=== PATIENT | male | born 1970 | race Caucasian/White ===

== ENCOUNTER 2024-04-21 08:53 | Emergency (ER) | payer OTHER, SELFPAY ==
[2024-04-21 08:53] VITALS: BP 138/81; PULSE 90; RESP 14; TEMP 36.1; O2SAT 99; BMI 36.5
--- NOTE | 2024-04-21 09:26 | ED.VIS.BACK ---
HPI History of Present Illness Chief Complaint: Back Informant: patient Onset/Context/Timing Onset: Today and Yesterday Context: Gradual Onset Timing: Continuous Quality: Sharp Location: Lumbar Current Severity: Moderate Maximum Severity: Moderate Worsened by: improves with Movement Relieved by: Remaining Still Associated Symptoms Associated Symptoms: Negative for Numbness, Tingling, Radiation to Right Leg, Radiation to Left Leg, Fever, Abdominal Pain, Dysuria, Unable to Ambulate, Unable to Transfer, Urinary Retention, Urinary Incontinence, Constipation or Fecal Incontinence Narrative Narrative: 53-year-old male history of prior back surgeries including anterior lift of L5-S1 and a fracture of the lumbar spine. He has had chronic back pain for years. He sees Dr. Jay with pain management. Recently just finished a prednisone taper yesterday. States he is having increased muscle spasms today and pain. Denies any fall or trauma. No fever. No bowel or bladder retention or incontinence. No leg weakness. He is on tizanidine for muscle relaxant. Prior similar symptoms: Yes Recent Illness/Hospitalization: No PFSH PFSH Home Medications ?Medication ?Instructions ?Recorded ?Last Taken ?Type tizanidine 4 mg tablet 4 mg PO BID PRN PRN pain 04/21/24 Unknown History Allergy/AdvReac Type Severity Reaction Status Date / Time gabapentin AdvReac MOOD Verified 04/21/24 08:56 ibuprofen (From Motrin) AdvReac Abd Verified 04/21/24 08:56 cramps/diarrhea simvastatin AdvReac Other Verified 04/21/24 08:56 Family History no significant family his Social History Smoking Status: Former smoker ROS ROS ED ROS Narrative Denies recent illness. Constitutional Constitutional ED: Denies chills or fever(s) Eyes Eyes: Denies blurry vision ENT ENT ED: Denies ear pain Cardiovascular Cardiovascular: Denies chest pain Respiratory/Chest Respiratory/Chest: Denies dyspnea Gastrointestinal Gastrointestinal: Denies abdominal pain Genitourinary Genitourinary ED: Denies dysuria or hematuria Musculoskeletal Musculoskeletal: Denies arthralgias Integumentary Denies abscess Neurologic Neurologic: Denies headache(s) Psychiatric Psychiatric: Denies anxiety or depression Endocrine Endocrinology: Denies cold intolerance Hematologic/Lymphatic Hematologic/Lymphatic: Denies easy bleeding, easy bruising or lymphadenopathy Allergic/Immunologic Allergic/Immunologic ED: Denies mouth swelling, tongue swelling or urticaria EXAM Physical Exam Narrative Exam Narrative: 53-year-old male vital signs are stable afebrile. No acute distress. H EENT exam pupils round react light. Mytrex membranes. Neck nontender. Lungs clear to auscultation. Heart regular rhythm rate about 90 no murmur. Abdomen soft, nontender, nondistended normal bowel sounds without peritoneal signs. Moving all 4 extremities. Neurovascularly intact. Normal acute care nurse practitioner strength. Normal motor strength of both lower extremities. Normal sensation. No cauda equina. Able to lift either leg off the bed. No radiculopathy. Back reproducible tenderness along the lumbar spine consistent with myofascial spasm. Well-healed prior surgical incision of the lumbar spine. Neurologically is awake and alert. No focal motor or sensory deficits. Const Vital Signs: 04/21/24 08:53 Temperature 96.9 F L Temperature Source Temporal Pulse Rate 90 Respiratory Rate 14 Blood Pressure 138/81 H Blood Pressure Mean 100 Pulse Ox 99 Oxygen Delivery Method Room Air Positive well nourished and well developed; Negative for cachectic, contractures or unkempt General Appearance ED: well developed; Negative for unkempt, cachectic or contractures Nutritional Appearance: Negative for cachectic HEENT Reports moist mucous membranes Negative for trauma or tenderness Eyes PERRL and EOMs intact bilaterally Neck no lymphadenopathy, supple and no JVD Resp normal respiratory effort and clear to auscultation bilaterally Cardio regular rate, regular rhythm, S1 normal heart sound, S2 normal heart sound and no murmurs GI normal to inspection, nondistended, normoactive bowel sounds, soft to palpation, non-tender, non-distended and no masses Inspection: Negative for abdominal distention Palpation: Negative for tender, guarding or rebound tenderness present Back/Spine normal to inspection Back/Spine Narrative: Paralumbar soft tissue tenderness consistent with muscle spasm. Thoracic Spine / Upper Back: paraspinal muscle tenderness Extremity normal to inspection and no clubbing, cyanosis or edema General Extremety ED: Negative for edema or tenderness General Extremity: Negative for edema Neuro oriented x3 and no sensory deficits noted Sensorium / Orientation: Negative for alert, confused, lethargic or stuporous Motor Exam: strength 5/5 throughout Psych mental status grossly normal Appearance: Negative for unkempt Attitude: No agitated Mood & Affect: Negative for depressed, sad or tearful Skin no rashes or lesions noted and no wounds General Skin Exam: Negative for jaundice Lesions: No lesion noted Rashes: No rashes noted Trauma: Negative for abrasion Wounds: Negative for wounds noted MDM MDM MDM Narrative Medical decision making narrative: 53-year-old male with chronic back pain from prior injuries and surgeries. Sees pain management has appointment to see his pain management physician Dr. Jay on Wednesday. He will be given an IM injection of morphine. He is currently taking a muscle relaxant which she will continue. He does not need any imaging. He is had no recent trauma. He is neurovascularly intact. Patient is comfortable the plan. Discharge Plan Triage Chief Complaint: Back ED Provider: Justin Saavedra Dx/Rx/DC Orders Clinical Impression: Back pain Instructions: ED Back Pain (Acute or Chronic) Prescriptions: No Action tizanidine 4 mg tablet 4 mg PO BID PRN PRN (Reason: pain) Referrals: Junaid Jay, [Non-Staff] - [facility] appointment Activity Restrictions/Additional Instructions: Continue your muscle relaxant. Hot shower, warm bath, massage. Follow-up with your painting supervisor with your scheduled appointment on Wednesday. Print Language: Chadian Disposition Disposition: Home, Self Care
[2024-04-21] MEDS: morphine 10 MG/ML Syringe IM (09:29)
== END 2024-04-21 09:42 | disposition home or self-care (01) ==
LOC: ED 09:38
PROVIDERS: Emergency Provider Emergency Medicine; PCP Internal Medicine; Visit Provider Emergency Medicine
DX: R11.2 Nausea with vomiting, unspecified (principal); G89.29 Other chronic pain; Z87.891 Personal history of nicotine dependence
CPT/HCPCS: 96372; 99282

== ENCOUNTER 2024-04-21 18:41 | Emergency (ER) | payer OTHER, SELFPAY ==
[2024-04-21 18:42] VITALS: BP 146/75; PULSE 84; RESP 16; TEMP 35.8; O2SAT 100; BMI 35.8
--- NOTE | 2024-04-21 20:40 | EDS_ITS ---
HPI HPI - GI History of Present Illness Chief Complaint: Nausea/Vomiting Informant: patient Abdominal Pain/Flank Pain Onset: Today Context: Gradual Onset Timing: Intermittent Quality: - (Knot) Location: Epigastric Worsened by: Nothing Relieved by: Nothing Nausea/Vomiting/Emesis GI Symptom: Positive for Nausea and Vomiting Onset: Today Quality: Positive for Nonbilious; Negative for Blood streaks, Coffee ground or Hematemesis Episodes: 4 Diarrhea/Melena/Hematochezia GI Symptom: Negative for Diarrhea, Melena or Hematochezia Associated Symptoms Associated Symptoms: Negative for Dysuria, Frequency or Hematuria Narrative Narrative: Patient presents with abdominal pain, nausea, and vomiting that began today. Patient states he was seen here earlier today for his back. Patient states he received an injection of morphine. Patient states that when he got home he started having some nausea and vomiting. Patient states he had a knot in his upper abdomen. Patient states it has resolved. Patient states he had 4 episo nabor of vomiting. Patient states he was stomach contents. Patient denies any hematemesis or coffee-ground emesis. Patient admits to some photophobia and some dizziness. Patient denies any diarrhea, melena, or hematochezia. Patient denies any urinary complaints. PFSH PFS Medical History (Updated 04/21/24 @ 22:[address] Alfred Suarez, ) Back pain Chronic pain Medical History no medical history Home Medications ?Medication ?Instructions ?Recorded ?Last Taken ?Type ondansetron 4 mg disintegrating 4 mg PO Q8H PRN PRN Na usea #10 tabs 04/21/24 Unknown Rx tablet tizanidine 4 mg tablet 4 mg PO BID PRN PRN pain Unknown History Allergy/AdvReac Type Severity Reaction Status Date / Time gabapentin AdvReac MOOD Verified 04/21/24 18:45 ibuprofen (From Motrin) AdvReac Abd Verified 04/21/24 18:45 cramps/diarrhea simvastatin AdvReac Other Verified 04/21/24 18:45 Family History no significant family his Surgical History (Updated 04/21/24 @ 22:[address] Alfred Suarez, DO) Hx of knee surgery Hx of shoulder surgery History of back surgery Surgical History no surgical history Social History Smoking Status: Former smoker ROS ROS ED Constitutional Constitutional ED: Reports chills and subjective; Denies fever(s) Eyes Eyes: Denies blurry vision or change in vision ENT ENT ED: Reports rhinorrhea; Denies sore throat Cardiovascular Cardiovascular: Denies chest pain or palpitations Respiratory/Chest Respiratory/Chest: Reports dyspnea; Denies cough Gastrointestinal Gastrointestinal: Denies nausea or vomiting Genitourinary Genitourinary ED: Denies dysuria or hematuria Musculoskeletal Musculoskeletal: Reports back pain and myalgias; Denies neck pain Integumentary Denies abscess or rash Neurologic Neurologic: Denies headache(s) or weakness Allergic/Immunologic Allergic/Immunologic ED: Denies mouth swelling or urticaria EXAM Physical Exam Const Vital Signs: 04/21/24 18:42 Temperature 96.5 F L Temperature Source Temporal Pulse Rate 84 Respiratory Rate 16 Blood Pressure 146/75 H Blood Pressure Mean 98 Pulse Ox 100 Positive well nourished and well developed General Appearance ED: well developed and NAD HEENT Reports moist mucous membranes Neck supple and no JVD Resp normal respiratory effort and clear to auscultation bilaterally Cardio regular rate GI non-tender and non-distended Palpation: soft Neuro CN's II-XII intact bilaterally, moves all extremities and no sensory deficits noted Sensorium / Orientation: alert Motor Exam: strength 5/5 throughout Psych mental status grossly normal MDM MDM MDM Narrative Medical decision making narrative: Differential diagnosis includes viral illness, gastroenteritis, pancreatitis, cholecystitis, cholelithiasis, dehydration, and electrolyte abnormality. CBC will be obtained to assess for leukocytosis and anemia. Comprehensive metabolic profile will be obtained to assess for hepatic function, renal function, and electrolyte abnormality. Lipase will be obtained to assess for pancreatitis. Lab Data Attestation: I reviewed the patient's lab results. Lab results narrative: CBC was reviewed and was within normal limits. Comprehensive metabolic profile was reviewed. Alkaline phosphatase was mildly elevated at 122, ALT was 350, and AST was 236. Total bilirubin was normal at 0.50. Lipase was reviewed and was normal at 22. Labs: Laboratory Results - last 24 hr 04/21/24 21:08 WBC 10.0 RBC 5.08 Hgb 15.8 Hct 44.9 MCV 88.4 MCH 31.1 MCHC 35.2 RDW Std Deviation 41.5 RDW Coeff of [place] 12.8 Plt Count 247 MPV 8.8 Immature Gran % (Auto) 0.400 Neut % (Auto) 84.4 H Lymph % (Auto) 7.4 L [place] % (Auto) 7.5 Eos % (Auto) 0.1 Baso % (Auto) 0.2 Absolute Neuts (auto) 8.4 H Absolute Lymphs (auto) 0.74 L Nucleated RBC % 0 Sodium 133 L Potassium 4.3 Chloride 100 Carbon Dioxide 28.0 Anion Gap 5 BUN 17 Creatinine 0.92 Estim Creat Clear Calc 117.81 Est GFR (MDRD) Af Amer 109 Est GFR (MDRD) Non-Af 90 BUN/Creatinine Ratio 18.4 Glucose 123 H Calcium 8.9 Total Bilirubin 0.50 AST 236 H ALT 350 H Alkaline Phosphatase 122 H Total Protein 7.5 Albumin 3.8 Globulin 3.7 Albumin/Globulin Ratio 1.0 Lipase 22 L Treatment and Re-Evaluation :: Patient was given IV fluids and Zofran. Patient was feeling better on reevaluation. Patient was advised of his findings. Patient was advised that this could be medication side effect versus viral illness. Patient was instructed to drink plenty of fluids. Patient was instructed to advance his diet as tolerated. Patient was given a prescription for Zofran. Patient was instructed to follow-up with his primary care physician in 5 to 7 days. Patient understood and was agreeable with the plan. All questions were answered. Discharge Plan Triage Chief Complaint: Nausea/Vomiting ED Provider: Alfred Suarez Dx/Rx/DC Orders Clinical Impression: Nausea and vomiting, Chronic pain Instructions: ED Vomiting (Adult) Prescriptions: New ondansetron 4 mg tablet,disintegrating 4 mg PO Q8H PRN PRN (Reason: Nausea) Qty: 10 0RF No Action tizanidine 4 mg tablet 4 mg PO BID PRN PRN (Reason: pain) Primary Care Provider: Hilda Moss Referrals: Hilda Moss MD [Primary Care Provider] - 5-7 Days Print Language: Urdu Disposition Disposition: Home, Self Care
[2024-04-21] MEDS: 0.9% Normal Saline (1000mL) 1,000 ML 999 ML IV (21:08)
[2024-04-21] MEDS: Ondansetron 4 MG/2 ML Vial IV (21:08)
[2024-04-21 21:25] LABS: Absolute Lymphocyte Count 0.74 X10^3/uL (0.83-4.51); Absolute Neutrophil Count 8.4 X10^3/uL (2.0-7.7); Basophil# 0.02 X10^3/uL; Basophil% 0.2 % (0-1); Eosinophil# 0.01 X10^3/uL; Eosinophils% 0.1 % (0-5); Hematocrit 44.9 % (40-54); Hemoglobin 15.8 g/dL (13.0-16.5); Lymphocyte # 0.74 X10^3/ul (0.83-4.51); Lymphocyte % 7.4 % (19-41); Mean Corp Hgb Conc 35.2 g/dL (32-36); Mean Corpuscular Hgb 31.1 pg (27.0-32.0); Mean Corpuscular Volume 88.4 fL (80-94); Mean Platelet Vol. 8.8 fl (6.2-12.0); Monocyte# 0.75 X10^3/uL; Monocyte% 7.5 % (0-10); NRBC Flagged by Analyzer 0 % (0-5); Neutrophil # 8.41 X10^3/uL (2.7-7.7); Neutrophil % 84.4 % (47-70); Platelet Count 247 K/mm3 (150-450); RBC Distribution Width CV 12.8 % (11.6-14.6); RBC Distribution Width SD 41.5 fl (35.1-43.9); Red Blood Count 5.08 M/mm3 (4.6-6.2)
[2024-04-21 21:56] LABS: AST(SGOT) 236 U/L (15-37); Alanine Aminotransfer ALT/SGPT 350 U/L (16-61); Albumin, Serum 3.8 g/dL (3.2-5.0); Alkaline Phosphatase 122 U/L (45-117); Anion Gap 5 (5-15); BUN 17 mg/dL (7-18); BUN/Creat Ratio 18.4 RATIO (10-20); Calcium,Total 8.9 mg/dL (8.5-10.1); Chloride 100 mmol/L (98-107); Creatinine, Serum 0.92 mg/dL (0.70-1.30); EST Glomerular Filtration Rate 90 mL/min (>60); Est Glom Filt Rate - Afr Amer 109 mL/min (>60); Estimated Creatinine Clearance 117.81 ml/min; Globulin 3.7 g/dL (2.2-4.2); Glucose 123 mg/dL (74-106); Lipase 22 U/L (73-393); Potassium 4.3 mmol/L (3.5-5.1); Protein, Total 7.5 g/dL (6.4-8.2); Sodium Level 133 mmol/L (136-145)
== END 2024-04-21 22:34 | disposition home or self-care (01) ==
PROVIDERS: Emergency Provider Emergency Medicine; PCP Internal Medicine; Visit Provider Emergency Medicine
DX: M54.50 Low back pain, unspecified (principal); G89.29 Other chronic pain; Z87.891 Personal history of nicotine dependence
CPT/HCPCS: 80053; 83690; 85025; 96361; 96374; 99283; J2405

== ENCOUNTER → 2024-06-02 | Outpatient (CLI) | payer OTHER, SELFPAY ==
--- NOTE | 2024-06-02 09:35 | CT_ITS ---
PROCEDURE: SINUS/FACIAL BONE REASON FOR EXAM: CHRONIC SINUSITIS TECHNIQUE: CT of the paranasal sinuses without contrast. Coronal and Sagittal reconstruction series were provided. One or more dose reduction techniques were used (e.g., Automated exposure control, adjustment of the mA and/or kV according to patient size, use of iterative reconstruction technique). COMPARISON: None. FINDINGS: Frontal: Predominantly clear Ethmoid: Scattered mucosal thickening and partial opacification, especially anterior ethmoid air cells Sphenoid: Clear Maxillary: Mild mucosal thickening throughout Turbinates: Unremarkable Nasal Septum: Midline Mastoids/Middle Ears: Clear CT/Sinus/Facial Bone IMPRESSION: Scattered sinus disease affecting mostly the maxillary sinuses and ethmoid air cells [facility]
== END | disposition home or self-care (01) ==
LOC: CT 09:31
PROVIDERS: PCP Internal Medicine; Referring Provider Otolaryngology Otolaryngology/Facial Plastic Surgery; Visit Provider Otolaryngology Otolaryngology/Facial Plastic Surgery
DX: J32.9 Chronic sinusitis, unspecified (principal)
CPT/HCPCS: 70486